=== PATIENT | male | born 1965 | race Caucasian/White ===

== ENCOUNTER 2018-07-06 09:48 | Day surgery (SDC) | payer OTHER ==
[2018-07-06 10:22] VITALS: BMI 26.5
[2018-07-06] MEDS ORDERED: Lactated Ringer's 500 ML IV ONE ×2 (13:17)
--- NOTE | 2018-07-06 13:21 | CP.SDSHP ---
Same Day Surgery H & P - History Proposed Procedure: colonoscopy Pre-Op Diagnosis: history of colon polyps - Previous Medical/Surgical History Cardiac: Hypertension Endocrine/Metabolic: Diabetes - Allergies Allergies: Allergies No Known Allergies Allergy (Verified 07/06/18 10:10) - Physical Exam General Appearance: NAD Vital Signs: Vital Signs 07/06/18 10:15 Temperature 98.6 F Pulse Rate 79 Respiratory 17 Rate Blood Pressure 171/87 H O2 Sat by Pulse 100 Oximetry Mental Status: Alert & Oriented x3 Neuro: WNL Heart: WNL Lungs: WNL GI: WNL - {Optional Preform as Required} Abdomen: WNL - Impression Pt. Evaluated Today:Candidate for Anesthesia & Procedure: Yes - Date & Time Date: 07/06/18 Time: 13:21 Short Stay Discharge - Short Stay Discharge Admitting Diagnosis/Reason for Visit: H/O/ COLONIC POLYPS Disposition: HOME/ ROUTINE
[2018-07-06] MEDS ORDERED: Propofol 10 mg/ml Inj (20 ML) ONE (13:22)
[2018-07-06 14:10] VITALS: O2SAT 100
[2018-07-06 14:46] VITALS: BP 132/85; PULSE 70; RESP 18; TEMP 98.2
== END 2018-07-06 14:40 | disposition home or self-care (01) ==
LOC: C.ENDO 09:48
PROVIDERS: ATTEND Internal Medicine Gastroenterology
DX: Z12.11 Encounter for screening for malignant neoplasm of colon (principal); K64.1 Second degree hemorrhoids; K62.89 Other specified diseases of anus and rectum; Z86.010 Personal history of colon polyps; I10 Essential (primary) hypertension; E11.9 Type 2 diabetes mellitus without complications; E78.5 Hyperlipidemia, unspecified; Z79.82 Long term (current) use of aspirin; Z79.84 Long term (current) use of oral hypoglycemic drugs; Z79.899 Other long term (current) drug therapy
CPT/HCPCS: 82948; G0105; J2704; J7120